=== PATIENT | female | born 1965 | race Caucasian/White ===

== ENCOUNTER 2022-12-30 08:16 | Outpatient (AMB) | payer OTHER, SELFPAY ==
--- NOTE | 2022-12-30 08:38 | MHC.OFFVIS ---
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 referral from . Morning News Producer Required: No Allergies No Known Allergies Allergy (Verified 12/30/22 08:47) Medication List - Last Reconciled 12/30/22 by BRIONNA Fagan fremanezumab-vfrm (Ajovy) mg subcut sumatriptan succinate 0 mg PO HPI HPI Comments History of Present Illness Details Right-handed 57-yr-old female presents for new pt evaluation of headache disorder, specifically migraine w/o aura for transfer of care from Dr Clark who recently retired. Pt reports she had very frequent and severe migraines, however has been doing much better on her current regimen. Headache questionnaire: Age/time of onset? teenage yrs Preceding causes? none Headache characteristics? bifrontal throbbing pain Pain intensity? Severe Prodrome symptoms? None Aura? None Associated symptoms? Photophobia, phonophobia, allodynia, nausea, neck pain, Focal weakness, Parethesias, Autonomic s/s? None Postdrome? none Triggers? dehydration- at times Positional, valsalva, exertional, sexual activity triggers? none Menstrual triggers? no hx Time of day? often wakes up with the headache Duration? 4 days Frequency? On Ajovy- less than 1 migraine attack < 1 month. In the month, 1 mild-mod migraine day. Prior to Ajovy- had every other day headache/migraine. How does headache impact your life? Cannot work or do her usual activities. 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 Has had normal brain MRI and CTs in the past. Has routine eye exams. Current acute medication use/interventions: Sumatriptan 100mg- may repeat dose- does cause some nausea (offset by eating 6-7 crackers). Previous acute medication use: None Current preventative medication use: Ajovy 225mg sc q month. Previous preventative medication use: Botox- which helped but not fully. Botox with Ajovy was more helpful. Amitriptyline- ineffective. Topiramate- caused severe paresthesias. Propranolol- ineffective. Aimovig- caused severe constipation. Non-pharmacological interventions: Rest in dark, ice packs. Other history of headache disorder? None History of musculoskeletal disorders or injury? None History of concussion/head injury? None History of mood disorder? None History of sleep disorder? Sleep difficulties. Unsure if she snores. Denies bruxism. History of respiratory disease? None History of CV disease? None History of coagulopathy? None History of endocrine or metabolic disease? None History of seizure? None Family planning? n/a Family history of migraine or other headache disorder? grandmother, mother, her son PFSH Surgical History (Updated 12/30/22 @ 08:48 by Nury Gaspar CMA) H/O: hysterectomy Family History (Updated 12/30/22 @ 08:48 by Nury Gaspar CMA) Father Prostate cancer Son JDMS (juvenile dermatomyositis) Social History (Updated 12/30/22 @ 08:49 by Nury Gaspar CMA) Alcohol intake: current Alcohol intake frequency: a few times a month Patient Tobacco Use Status: Never used Tobacco Review of Systems Const Details: See scanned ROS form Physical Exam Vital Signs: Last Vital Signs Pulse 68 12/30/22 08:39 BP 104/86 12/30/22 08:39 Pulse Ox 95 12/30/22 08:39 Oxygen Delivery Method Room Air 12/30/22 08:39 BMI result Body Mass Index 26.1 Const Orientation/consciousness: patient oriented x3 HEENT Other: No palpable scalp tenderness. Head: Yes normocephalic Resp Effort & Inspection: normal respiratory effort and able to speak in complete sentences Neuro General: patient oriented x3 Cranial nerves: Yes CN's II-XII intact bilaterally Cognition (Neuro): normal cognition Gait exam (Neuro): Normal gait present Motor exam (neuro): 5/5 motor strength present throughout Deep tendon reflexes (DTR's): Right triceps reflex intensity grade: 2+, Left triceps reflex intensity grade: 2+, Rt Biceps (C5, C6): 2+, Left biceps reflex intensity grade: 2+, Right brachioradialis reflex intensity grade: 2+, Left brachioradialis reflex intensity grade: 2+, Right patellar reflex intensity grade: 2+ and Left patellar reflex intensity grade: 2+ Coordination: [id number]-[id number] test normal, tandem gait normal and Romberg test negative Pupils: Normal pupillary reactivity/response: bilateral Psych Appearance: grossly normal Mental Status: mental status grossly normal Speech and movement: Normal speech and movement present Affect: normal affect Attitude: cooperative Thought process: Normal thought process present Assessment & Plan Assessment & Plan (1) Migraine without aura: Code(s): G43.009 - Migraine without aura, not intractable, without status migrainosus Plan For overall migraine w/o aura/headache management: Discussed importance of good self-care, including but not limited to maintaining a healthy diet, adequate fluid intake, adequate sleep, and engaging in regular physical activity. For headache triggers: Track headaches, especially after any treatment regimen changes. [employer] is one of many headache tracking apps. For acute migraine w/o aura/headache treatment: Discussed importance of taking acute medications at the first sign of headache, however stressed importance of avoiding acute medication overuse (especially with combined headache medications). Continue Sumatriptan 100mg tab, 100mg at onset of headache, may repeat in 2 hours. Max of 2 tabs (200mg) per 24 hours. May adjunct with OTC Tylenol 650mg q 4 hours, Ibuprofen 600mg q 6 hours, or Naproxen 440mg q 12 hrs prn. Future considerations: Sumatriptan injectable. Previous acute migraine medication trials: None Acute migraine medication contraindications: None at this time For migraine w/o aura/headache prevention medication: Continue Ajovy 225mg sc q month Previous migraine prevention medication trials: Botox- which helped but not fully. Botox with Ajovy was more helpful. Amitriptyline- ineffective. Topiramate- caused severe paresthesias. Propranolol- ineffective. Aimovig- caused severe constipation. Migraine prevention medication contraindications: None at this time Information also given on non-pharmacological interventions, such as Cefaly or Nerivio neuromodulation devices. Pt to follow-up in 4-6 months or sooner prn. Medications: New sumatriptan succinate (0.5 - 1 x 100 mg) 50 - 100 mg orally at onset of headache, may repeat in 2 hrs PRN; max 2 tabs per day or 4 tabs/week (may take with Ibuprofen) 30 days 12 tabs 6RF migraine headache fremanezumab-vfrm (Ajovy) 225 mg (1.5 mL) subcut ONCE 30 days 1.5 mL 11RF Coding Level of Care Code New Pt Level 4 (36649) Diagnoses Migraine without aura G43.009
[2022-12-30 08:39] VITALS: BP 104/86; PULSE 68; O2SAT 95; BMI 26.1
== END 2022-12-30 10:00 | disposition home or self-care (01) ==
PROVIDERS: PCP Internal Medicine; Visit Provider Nurse Practitioner Family
DX: G43.009 Migraine without aura, not intractable, without status migrainosus (principal)
CPT/HCPCS: 99204

== ENCOUNTER → 2022-12-30 08:16 | Outpatient (BNVA) | payer OTHER, SELFPAY | PROVIDERS: PCP Internal Medicine; Visit Provider Nurse Practitioner Family ==

== ENCOUNTER 2023-06-02 08:28 | Outpatient (AMB) | payer OTHER, SELFPAY ==
--- NOTE | 2023-06-02 08:44 | MHC.OFFVIS ---
Intake Vital Signs 06/02/23 08:45 Height 5 ft 7 in Weight 180 lb BMI 28.2 BP 110/74 Blood Pressure Location Rt brachial Position Sitting Pulse 74 Pulse Source Pulse Oximeter Pulse Oximetry (%) 98 Oxygen Delivery Method Room Air Intake Visit Reasons: 5 mnts f/u for Migraines-LVM Intake Note: Patient presents for 5 month follow up migraines Carly been getting them a little more but not like before Allergies No Known Allergies Allergy (Verified 06/02/23 08:48) Medication List - Last Reconciled 06/02/23 by BRIONNA Fagan fremanezumab-vfrm (Ajovy) 225 mg (1.5 mL) subcut ONCE 30 days sumatriptan succinate 0 mg PO sumatriptan succinate 50 - 100 mg orally at onset of headache, may repeat in 2 hrs PRN; max 2 tabs per day or 4 tabs/week (may take with Ibuprofen) 30 days HPI HPI Comments History of Present Illness Details 57-yr-old female presents for f/u visit. Pt endorses the following interval medical history changes: Right foot neuroma removal. She would like to discuss resuming Botox if possible. She has had an increase in migraine attacks which are more severe, despite being complaint w/ Ajovy. She is using Sumatriptan, which helps, but runs out before refill is due. Baseline migraine w/o aura characteristics: Severe bifrontal throbbing pain a/w Photophobia, phonophobia, allodynia, nausea, neck pain. Current number of typical migraine days per month: 12 migraine headache days Average painfulness of these migraines: mod-severe Current number of non-migraine headache days per month: 2 days of week (8 days per month) Average painfulness of these headaches: low grade Total headache days- 20 headache days per month, 12 off which meet migraine criteria- pt still has chronic migraine phenotype. Current number of days of acute medication use per month: > 12 days per month Previous number of migraine days per month prior to starting current preventive tx: Prior to Ajovy- had every other day severe headache/migraine. MIDAS (Migraine Disability Assessment): 1. On how many days in the last 3 months did you miss work or school because of your headaches? 5-6 2. How many days in the last 3 months was your productivity at work or school reduced by half or more because of your headaches? (Do not include days you counted in question 1 where you missed work or school.)? 10-15 3. On how many days in the last 3 months did you not do household work (such as housework, home repairs and maintenance, shopping, caring for children and relatives) because of your headaches? 5-6 4. How many days in the last 3 months was your productivity in household work reduced by half of more because of your headaches? (Do not include days you counted in question 3 where you did not do household work.)? 10-15 5. On how many days in the last 3 months did you miss family, social or leisure activities because of your headaches? > 30 Total (Questions 1-5): (MIDAS Grade Definition, MIDAS Score: I Little or No Disability: 0-5, II Mild Disability: 6-10, III Moderate Disability: 11-20, IV Severe Disability: 21+) PFSH Surgical History H/O: hysterectomy Family History Father Prostate cancer Son JDMS (juvenile dermatomyositis) Social History Alcohol intake: current Alcohol intake frequency: a few times a month Patient Tobacco Use Status: Never used Tobacco Physical Exam Vital Signs: Last Vital Signs Pulse 74 06/02/23 08:45 BP 110/74 06/02/23 08:45 Pulse Ox 98 06/02/23 08:45 Oxygen Delivery Method Room Air 06/02/23 08:45 BMI result Body Mass Index 28.2 Const General: cooperative and no acute distress Orientation/consciousness: patient oriented x3 Resp Effort & Inspection: normal respiratory effort and able to speak in complete sentences Neuro General: patient oriented x3 Cranial nerves: Yes CN's II-XII intact bilaterally Cognition (Neuro): normal cognition Psych Appearance: grossly normal Mental Status: mental status grossly normal Speech and movement: Normal speech and movement present Affect: normal affect Attitude: cooperative Assessment & Plan Assessment & Plan (1) Chronic migraine without aura: Code(s): G43.709 - Chronic migraine without aura, not intractable, without status migrainosus (2) Constipation: Code(s): K59.00 - Constipation, unspecified Plan For overall migraine w/o aura/headache management: Continue to optimize good self-care, including but not limited to maintaining a healthy diet, adequate fluid intake, adequate sleep, and engaging in regular physical activity. Track headaches, especially after any treatment regimen changes. [employer] is one of many headache tracking apps. For acute migraine w/o aura/headache treatment: Continue Sumatriptan 100mg tab, 100mg at onset of headache, may repeat in 2 hours. Max of 2 tabs (200mg) per 24 hours. May adjunct with OTC Tylenol 650mg q 4 hours, Ibuprofen 600mg q 6 hours, or Naproxen 440mg q 12 hrs prn. Future considerations: Sumatriptan injectable. Previous acute migraine medication trials: None Acute migraine medication contraindications: None at this time For migraine w/o aura/headache prevention medication: Resume Botox, as pt has had partial but not full benefit from Ajovy in hopes that using Ajovy with Botox will provide more meaningful reduction in severity and frequency of her chronic migraine burden. 155 unit units IM q 12 months per PREEMPT protocol- note in the past pt did have some neck weakness after Botox tx. Continue Ajovy 225mg sc q month Trial Nerivio- 45 neuromodulation stimulation qod for prevention and qd prn. Nerivio info shared w/ pt. Previous migraine prevention medication trials: Botox- which helped but not fully. Botox with Ajovy was more helpful. Amitriptyline- ineffective. Topiramate- caused severe paresthesias. Propranolol- ineffective. Aimovig- caused severe constipation. Migraine prevention medication contraindications: Aimovig d/t caused severe constipation. Qulipta- would need to use caution d/t risk for constipation s/e. Pt to follow-up in 4-6 months or sooner prn. Medications: New onabotulinumtoxinA (Botox) inject 155 units IM across forehead, scalp, and neck 200 units IM ONCE 12 weeks 1 ea 3RF M84.714 - Chronic migraine without aura, not intractable, without status migrainosus Refilled sumatriptan succinate (0.5 - 1 x 100 mg) 50 - 100 mg orally at onset of headache, may repeat in 2 hrs PRN; max 2 tabs per day or 4 tabs/week (may take with Ibuprofen) 30 days 12 tabs 6RF migraine headache Coding Level of Care Code Est Pt Level 4 (48926) Diagnoses Chronic migraine without aura G43.709 Constipation K59.00
[2023-06-02 08:45] VITALS: BP 110/74; PULSE 74; O2SAT 98; BMI 28.2
== END 2023-06-02 09:40 | disposition home or self-care (01) ==
PROVIDERS: PCP Internal Medicine; Visit Provider Nurse Practitioner Family
DX: G43.709 Chronic migraine without aura, not intractable, without status migrainosus (principal); K59.00 Constipation, unspecified
CPT/HCPCS: 99214

== ENCOUNTER → 2023-06-02 08:28 | Outpatient (BNVA) | payer OTHER, SELFPAY | PROVIDERS: PCP Internal Medicine; Visit Provider Nurse Practitioner Family ==

== ENCOUNTER 2023-10-27 12:46 | Outpatient (AMB) | payer OTHER, SELFPAY ==
--- NOTE | 2023-10-27 12:53 | A.OFFVIS_ITS ---
Vital Signs 10/27/23 12:54 Respiration 16 Pulse 74 Pulse Source Pulse Oximeter Pulse Oximetry (%) 98 Oxygen Delivery Method Room Air Intake Visit Reasons: Botox - LVM w/add Intake Note: Pt presents to the office for Botox injections. Supervisor Remelt Required: No Allergies No Known Allergies Allergy (Verified 10/27/23 12:54) Medication List - Last Reconciled 10/27/23 by Kamilla Hopper MD fremanezumab-vfrm (Ajovy) 225 mg (1.5 mL) subcut ONCE 30 days onabotulinumtoxinA (Botox) 200 units IM ONCE 12 weeks sumatriptan succinate 50 - 100 mg orally at onset of headache, may repeat in 2 hrs PRN; max 2 tabs per day or 4 tabs/week (may take with Ibuprofen) 30 days HPI Comments Details: ? 57y/o female comes for treatment of migraines with botox. ??? Most frequent reported adverse reactions following injection of botox for chronic migraine include neck pain (9%), headache(5%), eyelid ptosis(4%), migraine(4%), muscular weakness(4%), musculuskeletal stiffness(4%), bronchitis(3%), injection site pain (3%), musculoskeletal pain(3%), myalgia(3%), facial paresis(2%), HTN(2%) and muscle spasms(2%) were discussed in detail. ??? Botulinum toxin typeA 200units Lot no [id number] expiration October 2025 was diluted with 4 cc of normal saline . ??? Muscles injected- ??? Frontalis 4 sites ??? Procerus 1 site ??? Cmm Programmer- 2 sites ??? Temporalis- 8 sites ??? Occipitalis- 6 sites ??? Cervical paraspinals- 4 sites ??? Trapezius- 6 sites- 10 units each ??? 5 units each in 31 site ??? Total use- 185units ??? Discarded-15units PFSH Surgical History H/O: hysterectomy Family History Father Prostate cancer Son JDMS (juvenile dermatomyositis) Social History Alcohol intake: current Alcohol intake frequency: a few times a month Patient Tobacco Use Status: Never used Tobacco Physical Exam Vital Signs: Last Vital Signs Pulse 74 10/27/23 12:54 Resp 16 10/27/23 12:54 Pulse Ox 98 10/27/23 12:54 Oxygen Delivery Method Room Air 10/27/23 12:54 Const General: cooperative and no acute distress Orientation/consciousness: patient oriented x3 Resp Effort & Inspection: normal respiratory effort and able to speak in complete sentences Neuro General: patient oriented x3 Cranial nerves: Yes CN's II-XII intact bilaterally Cognition (Neuro): normal cognition Psych Appearance: grossly normal Mental Status: mental status grossly normal Speech and movement: Normal speech and movement present Affect: normal affect Attitude: cooperative Office Procedures Botulinum toxin Injection 08069 - Migraine Procedure code (CPT) selection complete Office Meds onabotulinumtoxinA 200 unit solution for injection Performing Provider: Kamilla Hopper MD Performing Location: [facility] [place] [facility] Administered by: Kamilla Hopper MD on 10/27/23 13:36 Dose Route Admin Location Dispensed Lot Number Expiration Date [facility] Sales Secretary 185 unit subcut 200 units [id number] 10/21/25 2885-0280-19 ALLERGAN/BOTOX Comments: see HPI Assessment & Plan Assessment & Plan (1) Chronic migraine without aura: Code(s): G43.709 - Chronic migraine without aura, not intractable, without status migrainosus Category: Medical Plan Patient tolerated the procedure well She will call with any side effects Orders: Orders AMB Botulinum toxin Injection - Patient Supplied Today G43.709 - Chronic migraine without aura, not intractable, without status migrainosus Medications: New onabotulinumtoxinA 200 units subcut ONCE 1 ea 0RF migraine G43.709 - Chronic migraine without aura, not intractable, without status migrainosus Coding Level of Care Code Est Pt Level 1 (71364) Diagnoses Chronic migraine without aura G43.709 CPT Codes Botox Injection - Botox 3: 89954 - Migraine ([id number])
[2023-10-27 12:54] VITALS: PULSE 74; RESP 16; O2SAT 98
== END 2023-10-27 13:33 | disposition home or self-care (01) ==
PROVIDERS: PCP Internal Medicine; Visit Provider Psychiatry & Neurology Neurology
DX: G43.709 Chronic migraine without aura, not intractable, without status migrainosus (principal)
CPT/HCPCS: 64615

== ENCOUNTER → 2023-10-27 12:46 | Outpatient (BNVA) | payer OTHER, SELFPAY | PROVIDERS: PCP Internal Medicine; Visit Provider Psychiatry & Neurology Neurology | DX: G43.709 Chronic migraine without aura, not intractable, without status migrainosus (principal) | CPT/HCPCS: 64615; 99211; J0585 ==

== ENCOUNTER 2024-03-13 07:56 | Outpatient (AMB) | payer OTHER, SELFPAY ==
[2024-03-13 08:02] VITALS: BP 112/76
--- NOTE | 2024-03-13 08:02 | A.OFFVIS_ITS ---
Vital Signs 03/13/24 08:02 Height 5 ft 7 in BP 112/76 Blood Pressure Location Rt brachial Position Sitting Intake Visit Reasons: Botox Intake Note: Patient presents for botox injection Allergies No Known Allergies Allergy (Verified 03/13/24 08:05) Medication List - Last Reconciled 03/13/24 by Kamilla Hopper MD fremanezumab-vfrm (Ajovy) 225 mg (1.5 mL) subcut ONCE 30 days onabotulinumtoxinA (Botox) 200 units IM ONCE 12 weeks sumatriptan succinate 50 - 100 mg orally at onset of headache, may repeat in 2 hrs PRN; max 2 tabs per day or 4 tabs/week (may take with Ibuprofen) 30 days HPI Comments Details: ? 58y/o female comes for treatment of migraines with botox. Patient has decreased intensity and frequency of migraines with ajovy and botox. when she was just on ajovy the frequency decreased but her breakthrough migraines lasted 4-5 days and intensity was 10/10 and she was unable to work. ??? Most frequent reported adverse reactions following injection of botox for chronic migraine include neck pain (9%), headache(5%), eyelid ptosis(4%), migraine(4%), muscular weakness(4%), musculuskeletal stiffness(4%), bronchitis(3%), injection site pain (3%), musculoskeletal pain(3%), myalgia(3%), facial paresis(2%), HTN(2%) and muscle spasms(2%) were discussed in detail. ??? Botulinum toxin typeA 200units Lot no [id number] expiration Jun 2025 was diluted with 4 cc of normal saline . ??? Muscles injected- ??? Frontalis 4 sites ??? Procerus 1 site ??? Otr [employer] Truck Driver- 2 sites ??? Temporalis- 8 sites ??? Occipitalis- 6 sites ??? Cervical paraspinals- 4 sites ??? Trapezius- 6 sites- 10 units each ??? 5 units each in 31 site ??? Total use- 185units ??? Discarded-15units PFSH Surgical History H/O: hysterectomy Family History Father Prostate cancer Son JDMS (juvenile dermatomyositis) Social History Alcohol intake: current Alcohol intake frequency: a few times a month Patient Tobacco Use Status: Never used Tobacco Physical Exam Vital Signs: Last Vital Signs BP 112/76 03/13/24 08:02 Const General: cooperative and no acute distress Orientation/consciousness: patient oriented x3 Resp Effort & Inspection: normal respiratory effort and able to speak in complete sentences Neuro General: patient oriented x3 Cranial nerves: Yes CN's II-XII intact bilaterally Cognition (Neuro): normal cognition Psych Appearance: grossly normal Mental Status: mental status grossly normal Speech and movement: Normal speech and movement present Affect: normal affect Attitude: cooperative Office Procedures Botulinum toxin Injection 39436 - Migraine Procedure code (CPT) selection complete Office Meds onabotulinumtoxinA 200 unit solution for injection Performing Provider: Kamilla Hopper MD Performing Location: [facility] [place] [facility] Administered by: Kamilla Hopper MD on 03/13/24 08:43 Dose Route Admin Location Dispensed Lot Number Expiration Date [facility] Ceramic Chemist 185 unit subcut 200 units [id number] 06/23/26 4711-4473-38 ALLERGAN/BOTOX Comments: see HPI Assessment & Plan Assessment & Plan (1) Chronic migraine without aura: Code(s): G43.709 - Chronic migraine without aura, not intractable, without status migrainosus Category: Medical Qualifiers: Status migrainosus presence: without status migrainosus Intractability: intractable Qualified Code(s): G43.719 - Chronic migraine without aura, intractable, without status migrainosus Plan Patient tolerated the procedure well She will call with any side effects Orders: Orders AMB Botulinum toxin Injection - Patient Supplied Today G43.719 - Chronic migraine without aura, intractable, without status migrainosus Medications: New onabotulinumtoxinA 200 units subcut ONCE 1 ea 0RF migraine G43.719 - Chronic migraine without aura, intractable, without status migrainosus Coding Level of Care Code Est Pt Level 1 (97731) Diagnoses Intractable chronic migraine without aura and without status migrainosus G43.719 Status migrainosus presence: without status migrainosus Intractability: intractable CPT Codes Botox Injection - Botox 3: 56387 - Migraine ([id number])
== END 2024-03-13 08:37 | disposition home or self-care (01) ==
PROVIDERS: PCP Internal Medicine; Visit Provider Psychiatry & Neurology Neurology
DX: G43.719 Chronic migraine without aura, intractable, without status migrainosus (principal)
CPT/HCPCS: 64615

== ENCOUNTER → 2024-03-13 07:56 | Outpatient (BNVA) | payer OTHER, SELFPAY | PROVIDERS: PCP Internal Medicine; Visit Provider Psychiatry & Neurology Neurology | DX: G43.719 Chronic migraine without aura, intractable, without status migrainosus (principal) | CPT/HCPCS: 64615; 99211; J0585 ==

== ENCOUNTER 2024-07-31 08:24 | Outpatient (AMB) | payer OTHER, SELFPAY ==
[2024-07-31 08:29] VITALS: BP 118/80; PULSE 84; O2SAT 97; BMI 23.5
--- NOTE | 2024-07-31 08:29 | MHC.OFFVIS ---
Vital Signs 07/31/24 08:29 Height 5 ft 7 in Weight 150 lb BMI 23.5 BP 118/80 Blood Pressure Location Lt brachial Position Sitting Pulse 84 Pulse Source Pulse Oximeter Pulse Oximetry (%) 97 Oxygen Delivery Method Room Air Intake Visit Reasons: 6 mnts f/u for Migraines Intake Note: Patient presents follow up Migraine. Electronics Installer Required: No Accompanied by: Self / Same As Patient Allergies No Known Allergies Allergy (Verified 07/31/24 08:29) Medication List - Last Reconciled 07/31/24 by BRIONNA Fagan fremanezumab-vfrm (Ajovy) 225 mg (1.5 mL) subcut ONCE 30 days onabotulinumtoxinA (Botox) 200 units IM ONCE 12 weeks rosuvastatin 5 mg PO DAILY sumatriptan succinate 50 - 100 mg orally at onset of headache, may repeat in 2 hrs PRN; max 2 tabs per day or 4 tabs/week (may take with Ibuprofen) 30 days HPI Comments Details: 58-yr-old female presents for f/u visit for migraine. Pt reports she was recently strated on low dose rosuvastatin for tx of familial HLD- so far toelrtaing it well. Pt reports she received 2 courses of Botox, however canceled her last Botox appointment. She did not tolerate the procedure well, Botox injections caused bruising. Since stopping the Botox she has had approximately 1 migraine day per month, which responds to sumatriptan. However the sumatriptan causes nausea, and so she is curious about trying Ubrelvy. She thinks she has tried alternative triptans in the past, however we do not have specific documentation of which. Overall, she is happy with her current Ajovy therapy, which she is tolerating well. Baseline migraine w/o aura characteristics: Severe bifrontal throbbing pain a/w Photophobia, phonophobia, allodynia, nausea, neck pain. PFSH Surgical History H/O: hysterectomy Family History Father Prostate cancer Son JDMS (juvenile dermatomyositis) Social History Alcohol intake: current Alcohol intake frequency: a few times a month Patient Tobacco Use Status: Never used Tobacco Physical Exam Vital Signs: Last Vital Signs Pulse 84 07/31/24 08:29 BP 118/80 07/31/24 08:29 Pulse Ox 97 07/31/24 08:29 Oxygen Delivery Method Room Air 07/31/24 08:29 BMI result Body Mass Index 23.5 Const General: cooperative and no acute distress Orientation/consciousness: patient oriented x3 Resp Effort & Inspection: normal respiratory effort and able to speak in complete sentences Neuro General: patient oriented x3 Cranial nerves: Yes CN's II-XII intact bilaterally Cognition (Neuro): normal cognition Psych Appearance: grossly normal Mental Status: mental status grossly normal Speech and movement: Normal speech and movement present Affect: normal affect Attitude: cooperative Assessment & Plan Assessment & Plan (1) HLD (hyperlipidemia): Code(s): E78.5 - Hyperlipidemia, unspecified Category: Medical (2) Migraine without aura: Code(s): G43.009 - Migraine without aura, not intractable, without status migrainosus Category: Medical Plan For overall migraine w/o aura/headache management: Continue to optimize good self-care, including but not limited to maintaining a healthy diet, adequate fluid intake, adequate sleep, and engaging in regular physical activity. Concur with starting low-dose rosuvastatin to manage hyperlipidemia. Track headaches, especially after any treatment regimen changes. Migraine [employer] is one of many headache tracking apps. For acute migraine w/o aura/headache treatment: Hold Sumatriptan 100mg tab- as it is effective but causes nausea. Trial Rizatriptan 10mg tab, 1/2 - 1 tab (5-10mg) at onset of headache, may repeat in 2 hours. Max of 2 tabs (200mg) per 24 hours. May adjunct with OTC Tylenol 650mg every 4 hours, Ibuprofen (liquigel) 600mg every 6 hours, or Naproxen (liquigel) 440mg every 12 hrs as needed. Potential adverse effects of triptans, include but are not limited to nausea, fatigue, chest tightness/tingling (usually passes within a few minutes), medication overuse headaches. We will also provide patient with sample of Ubrelvy trial, as this likely will be effective as she has positive effect from Ajovy. Future considerations: Sumatriptan injectable. Previous acute migraine medication trials: Sumatriptan effective but causes nausea. Acute migraine medication contraindications: None at this time For migraine w/o aura/headache prevention medication: Concur with stopping Botox- not tolerating injections, and breakthrough migraine frequency has decreased significantly. 155 unit units IM q 12 months per PREEMPT protocol- note in the past pt did have some neck weakness after Botox tx. Continue Ajovy 225mg sc q month Previous migraine prevention medication trials: Botox- which helped but not fully. Botox with Ajovy was more helpful. Amitriptyline- ineffective. Topiramate- caused severe paresthesias. Propranolol- ineffective. Aimovig- caused severe constipation. Migraine prevention medication contraindications: Aimovig d/t caused severe constipation. Qulipta- would need to use caution d/t risk for constipation s/e. Sample given Ubrelvy 100mg tab- 1 tab per box Quantity given- 2 boxes (2 tabs) instructions- Trial Ubrogepant (Ubrelvy) 100mg tab, 1/2 - 1 tab (50-100mg) at onset of headache, may repeat in 2 hours. Max of 2 tabs (200mg) per 24 hours. May adjunct with OTC Tylenol 650mg q 4 hours, Ibuprofen 600mg q 6 hours, or Naproxen 440mg q 12 hrs prn. Do not take w/ Butalbital (Fioricet or Fiorinal). Potential adverse effects, include but are not limited to fatigue, nausea, dry mouth, constipation lot # [id number] Exp date 04/2025 Pt to follow-up in 6 months or sooner prn. Medications: New rizatriptan max 2 tabs per day or 4 tabs per week 5 - 10 mg (0.5 - 1 x 10 mg) PO Q2H 21 days PRN 12 tabs 3RF migraine headache Coding Level of Care Code Est Pt Level 4 (11581) Diagnoses HLD (hyperlipidemia) E78.5 Migraine without aura G43.009
--- OUTSIDE RECORDS SUMMARY | 2024-07-31 09:04 | XMS_ITS | Encounter Summary ---
Author Organization [facility] Address [address] [place] [address] Care Team Providers Care Meal Cooker Name Role Phone Vance Morales MD Primary Care Provider [phone] Reason for Referral * Imaging (Routine) - Closed Specialty Diagnoses / Procedures Referred By Carson thacker Referred To Contact Radiology Diagnoses Encounter for screening mammogram for malignant neoplasm of breast Procedures MG Mammo Digital Screening w Vance Campbell MD [address] [place] [address] Phone: tel: fax: [facility] [place] Referral ID Status Reason Start Date Expiration Date Visits Re quested Visits Authorized [id number] Closed 06/25/2024 06/25/2025 1 1 Reason for Visit * Imaging (Routine) - Closed Specialty Diagnoses / Procedures Referred By Carson thacker Referred To Contact Radiology Diagnoses Encounter for screening mammogram for malignant neoplasm of breast Procedures MG Mammo Digital Screening w Vance Campbell MD [address] [place] [address] Phone: tel: fax: [facility] [place] Referral ID Status Reason Start Date Expiration Date Visits Re quested Visits Authorized [id number] Closed 06/25/2024 06/25/2025 1 1 Encounter Details Date Type Department Care Team (Latest Contact Info) Description 07/04/2024 7:41 AM EST - 07/04/2024 11:59 PM EST Hospital [facility] [address] [address] Encounter for screening mammogram for malignant neoplasm of breast Discharge Disposition: Home or Self Care Social History Tobacco Use Types Packs/Day Years Used Date Smoking Tobacco: Never Assessed Comments No Sex and Gender Information Value Date Recorded Sex Assigned at Not on file Legal Sex Female 12:23 PM EST Gender Identity Not on file Sexual Orientation Not on file documented as of this encounter Last Filed Vital Signs Vital Sign Reading Time Taken Comments Blood Pressure - - Pulse - - Temperature - - Respiratory Rate - - Oxygen Saturation - - Inhaled Oxygen Concentration - - Weight 72.6 kg (160 lb) 07/04/2024 7:47 AM EST Height 170.2 cm (5' 7 ) 07/04/2024 7:47 AM EST Body Mass Index 25.06 07/04/2024 7:47 AM EST documented in this encounter Discharge Disposition Disposition Code Departure Means Destination Home or Self Care documented in this encounter Plan of Treatment Not on file documented as of this encounter Procedures Procedure Name Priority Date/Time Associated Diagnosis Comments MG MAMMO DIGITAL SCREENING W ZAKI BILAT Routine 07/04/2024 7:55 AM EST Encounter for screening mammogram for malignant neoplasm of breast documented in this encounter Results * MG Mammo Digital Screening w Zaki bilat (07/04/2024 7:55 AM EST) Anatomical Region Laterality Modality Breast Bilateral Mammography 07/04/2024 12:5 7 PM EST Impressions 07/04/2024 1:01 PM EST No mammographic evidence of malignancy. BI-RADS: ??Category 2: Benign RECOMMENDATION(S): Routine screening mammogram BILATERAL in 1 year. -------- FINAL REPORT -------- Dictated By: DESHAWN LINCOLN Dictated Date: 07/04/2024 12:57 ET Assigned Physician: DESHAWN LINCOLN Reviewed and Electronically Signed By: DESHAWN LINCOLN Signed Date: 07/04/2024 13:01 ET Workstation ID: [id number] Transcribed By: Self Edit Transcribed Date: 07/04/2024 12:57 ET Narrative 07/04/2024 1:01 PM EST EXAM: MG MAMMO DIGITAL SCREENING W ZAKI BILAT EXAM DATE AND TIME: 07/04/2024 7:46 AM HISTORY: SCREENING COMPARISON: 10/14/2022 through 08/06/2019 TECHNIQUE: Bilateral digital breast tomosynthesis was performed in the MLO projection. Computer aided detection with iCAD [employer] AI 3D 3.1 was employed. TISSUE DENSITY: b: There are scattered areas of fibroglandular density. FINDINGS: There is no evidence of suspicious mass, unusual calcifications, or architectural distortion. Scattered benign calcifications are seen bilaterally. Procedure Note Deshawn Lincoln MD - 07/04/2024 EXAM: MG MAMMO DIGITAL SCREENING W ZAKI BILAT EXAM DATE AND TIME: 07/04/2024 7:46 AM HISTORY: SCREENING COMPARISON: 10/14/2022 through 08/06/2019 TECHNIQUE: Bilateral digital breast tomosynthesis was performed in the MLOprojection. Computer aided detection with iCAD [employer] AI 3D 3.1 wasemployed. TISSUE DENSITY: b: There are scattered areas of fibroglandular density. FINDINGS: There is no evidence of suspicious mass, unusual calcifications, orarchitectural distortion. Scattered benign calcifications are seen bilaterally. IMPRESSION: No mammographic evidence of malignancy. BI-RADS: Category 2: Benign RECOMMENDATION(S): Routine screening mammogram BILATERAL in 1 year. -------- FINAL REPORT -------- Dictated By: DESHAWN LINCOLN Dictated Date: 07/04/2024 12:57 ET Assigned Physician: DESHAWN LINCOLN Reviewed and Electronically Signed By: DESHAWN LINCOLN Signed Date: 07/04/2024 13:01 ET Workstation ID: [id number] Transcribed By: Self Edit Transcribed Date: 07/04/2024 12:57 ET Vance Morales MD IMG BI PROCEDURES Final Resu lt documented in this encounter Visit Diagnoses Diagnosis Encounter for screening mammogram for malignant neoplasm of breast documented in this encounter Care Teams Meal Cooker Relationship Specialty Start Date End Date Vance Morales MD [address] [place] [id number] PCP - General Internal Medicine 06/29/24 documented as of this encounter
--- OUTSIDE RECORDS SUMMARY | 2024-07-31 09:04 | XMS_ITS | Clinical Summary ---
Author Organization [facility] Address [address] [place] [address] Phone Care Team Providers Care Pathology Secretary Name Role Phone Vance Morales MD Primary Care Provider Encounters Date Type Department Care Team Description 07/04/2024 7:41 AM EST - 07/04/2024 11:59 PM EST [facility] at [address] [address] Encounter for screening mammogram for malignant neoplasm of breast Discharge Disposition: Home or Self Care from Last 3 Months Surgical History Surgery Date Site/Laterality Comments HYSTERECTOMY Social History Tobacco Use Types Packs/Day Years Used Date Smoking Tobacco: Never Assessed Comments No Sex and Gender Information Value Date Recorded Sex Assigned at Not on file Legal Sex Female 12:23 PM EST Gender Identity Not on file Sexual Orientation Not on file Obstetrics History Para Term AB IAB SAB Ectopic Multiple Livin g Live Births 2 Last Filed Vital Signs Vital Sign Reading Time Taken Comments Blood Pressure - - Pulse - - Temperature - - Respiratory Rate - - Oxygen Saturation - - Inhaled Oxygen Concentration - - Weight 72.6 kg (160 lb) 07/04/2024 7:47 AM EST Height 170.2 cm (5' 7 ) 07/04/2024 7:47 AM EST Body Mass Index 25.06 07/04/2024 7:47 AM EST Plan of Treatment Health Maintenance Due Date Last Done Comments DTaP,Tdap,and Td Vaccines (1 - Tdap) 11/07/1982 Cervical Cancer Screening: Pap Smear 11/07/1984 Pneumococcal Vaccine: 50+ Years (1 of 1 - PCV) 11/07/2013 Colorectal Cancer Screening: Colonoscopy 04/20/2022 Depression Screening 04/20/2022 HIV Screening 04/20/2022 Hepatitis C Screening 04/20/2022 Social Influencers of Health Screening 04/20/2022 COVID-19 Vaccine ( season) 2024 02/09/2022, 04/06/2021, 07/04/2020, Additional history exists Influenza Vaccine (#1) 2024 3, 03/30/2022, 02/25/2021 Breast Cancer Screening 07/04/2026 07/04/19, 10/14/2022, 10/12/2021, Additional history exists RSV Immunization Patients 60+ Years Old (1 - 1-dose 75+ series) 11/07/2038 Zoster Vaccines Completed 06/11/2023, 02/28/2023 HIB Vaccines Aged Out No longer eligi ble based on patient's age to complete this topic HPV Vaccines Aged Out No longer eligi ble based on patient's age to complete this topic Hepatitis A Vaccines Aged Out No long er eligible based on patient's age to complete this topic Hepatitis B Vaccines Aged Out No long er eligible based on patient's age to complete this topic IPV Vaccines Aged Out No longer eligi ble based on patient's age to complete this topic MMR Vaccines Aged Out No longer eligi ble based on patient's age to complete this topic Meningococcal ACWY Vaccine Aged Out N o longer eligible based on patient's age to complete this topic Meningococcal B Vacine Aged Out No lo nger eligible based on patient's age to complete this topic Pneumococcal Vaccine: Pediatrics (0 to 5 Years) and At-Risk Patients (6 to 64 Years) Aged Out No longer eligible based on patient's age to complete this topic RSV Immunization Patients Under 20 months Aged Out No longer eligible based on patient's age to complete this topic Varicella Vaccines Aged Out No longer eligible based on patient's age to complete this topic Procedures Procedure Name Priority Date/Time Associated Diagnosis Comments MG MAMMO DIGITAL SCREENING W ZAKI BILAT Routine 07/04/2024 7:55 AM EST Encounter for screening mammogram for malignant neoplasm of breast from Last 3 Months Results * MG Mammo Digital Screening w [...] Signed Date: 07/04/2024 13:01 ET Workstation ID: [id number] Transcribed By: Self Edit Transcribed Date: 07/04/2024 12:57 ET Narrative 07/04/2024 1:01 PM EST EXAM: MG MAMMO DIGITAL SCREENING W ZAKI BILAT EXAM DATE AND TIME: 07/04/2024 7:46 AM HISTORY: SCREENING COMPARISON: 10/14/2022 through 08/06/2019 TECHNIQUE: Bilateral digital breast tomosynthesis was performed in the MLO projection. Computer aided detection with [employer] AI 3D 3.1 was employed. TISSUE DENSITY: [...] the MLOprojection. Computer aided detection with iCAD [employer] AI 3D 3.1 wasemployed. TISSUE DENSITY: b: [...] Signed Date: 07/04/2024 13:01 ET Workstation ID: [id number] Transcribed By: Self Edit Transcribed Date: 07/04/2024 12:57 ET Vance Morales MD IMG BI PROCEDURES Final Resu lt from Last 3 Months Insurance [facility] Care Teams Pathology Secretary Relationship Specialty Start Date End Date Vance Morales MD [address] [place] [address] PCP - General Internal Medicine 06/29/24
== END 2024-07-31 09:24 | disposition home or self-care (01) ==
LOC: HO.HSMS 08:24
PROVIDERS: PCP Internal Medicine; Visit Provider Nurse Practitioner Family
DX: E78.5 Hyperlipidemia, unspecified (principal); G43.009 Migraine without aura, not intractable, without status migrainosus
CPT/HCPCS: 99214

== ENCOUNTER → 2024-07-31 08:24 | Outpatient (BNVA) | payer OTHER, SELFPAY | PROVIDERS: PCP Internal Medicine; Visit Provider Nurse Practitioner Family | DX: G43.709 Chronic migraine without aura, not intractable, without status migrainosus (principal) ==

== ENCOUNTER 2025-01-31 09:15 | Outpatient (AMB) | payer OTHER, SELFPAY ==
--- NOTE | 2025-01-31 09:16 | A.OFFVIS_ITS ---
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 Refrigeration Required: No Accompanied by: Self / Same As Patient Allergies No Known Allergies Allergy (Verified 01/31/25 09:16) Medication List - Last Reconciled 01/31/25 by BRIONNA Fagan fremanezumab-vfrm (Ajovy) 225 mg (1.5 mL) subcut ONCE 30 days rizatriptan 5 - 10 mg (0.5 - 1 x 10 mg) PO Q2H PRN 21 days rosuvastatin 10 mg PO DAILY sumatriptan succinate 50 - 100 mg orally at onset of headache, may repeat in 2 hrs PRN; max 2 tabs per day or 4 tabs/week (may take with Ibuprofen) 30 days trazodone 25 - 50 mg (0.5 - 1 x 50 mg) PO BEDTIME PRN 30 days HPI Comments Details: 59-yr-old female presents for f/u visit for migraine. Patient denies any significant interval medical history changes. Pt reports she continues to be happy with her current Ajovy therapy, which she is tolerating well. She is rarely having a breakthrough migarine, and today states she prefers to continue with her prn sumatriptan. She is taking Z-quil every night to help her sleep. 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 She walks 12,000 steps a day and does weight training 4 times a week, and it manage her weight. She only takes coffee in the morning. She denies snoring, gasping arousals, apneas, or history of sleep apnea. She denies restless leg, nocturnal leg cramps. Baseline migraine w/o aura characteristics: Severe bifrontal throbbing pain a/w Photophobia, phonophobia, allodynia, nausea, neck pain. [facility] Surgical History H/O: hysterectomy Family History Father Prostate cancer Son JDMS (juvenile dermatomyositis) Social History Alcohol intake: current Alcohol intake frequency: a few times a month Patient Tobacco Use Status: Never used Tobacco Physical Exam Vital Signs: Last Vital Signs Pulse 76 01/31/25 09:17 BP 108/76 01/31/25 09:17 Pulse Ox 100 01/31/25 09:17 Oxygen Delivery Method Room Air 01/31/25 09:17 BMI result Body Mass Index 24.8 Const General: cooperative and no acute distress Orientation/consciousness: patient oriented x3 Resp Effort & Inspection: normal respiratory effort and able to speak in complete sentences Neuro General: patient oriented x3 Cranial nerves: Yes CN's II-XII intact bilaterally Cognition (Neuro): normal cognition Psych Appearance: grossly normal Mental Status: mental status grossly normal Speech and movement: Normal speech and movement present Affect: normal affect Attitude: cooperative Assessment & Plan Assessment & Plan (1) Migraine without aura: Code(s): G43.009 - Migraine without aura, not intractable, without status migrainosus Category: Medical Qualifiers: Status migrainosus presence: without status migrainosus Intractability: not intractable Qualified Code(s): G43.009 - Migraine without aura, not intractable, without status migrainosus (2) Insomnia: Code(s): G47.00 - Insomnia, unspecified Category: Medical Qualifiers: Insomnia type: psychophysiologic Qualified Code(s): F51.04 - Psychophysiologic insomnia Plan For overall migraine w/o aura/headache management: Continue to optimize good self-care, including but not limited to maintaining a healthy diet, adequate fluid intake, adequate sleep, and engaging in regular physical activity. Track headaches For insomnia: * Start trazodone 50 mg tab, half to 1 tab daily at bedtime. * Reviewed reasonable expectations and side effects of use * List of sleep education resources shared with patient, such as ?Say Jl to Insomnia? by Dr. Victor Hugo Gaston. For acute migraine w/o aura/headache treatment: * Continue Sumatriptan 100mg tab * Discontinue Rizatriptan 10mg tab-patient states sumatriptan is better tolerated Future considerations: Sumatriptan injectable. Previous acute migraine medication trials: Sumatriptan effective but causes nausea. Acute migraine medication contraindications: None at this time For migraine w/o aura/headache prevention medication: * Continue Ajovy 225mg sc q month Previous migraine prevention medication trials: Botox- which helped but not fully. Botox with Ajovy was more helpful. Amitriptyline- ineffective. Topiramate- caused severe paresthesias. Propranolol- ineffective. Aimovig- caused severe constipation. Migraine prevention medication contraindications: Aimovig d/t caused severe constipation. Qulipta- would need to use caution d/t risk for constipation s/e. Pt to follow-up in 12 months or sooner prn. Medications: New trazodone 25 - 50 mg (0.5 - 1 x 50 mg) PO BEDTIME PRN 30 tabs 3RF insomnia 30 days Discontinued rizatriptan max 2 tabs per day or 4 tabs per week Discontinued Reason: Doctor's Order 5 - 10 mg (0.5 - 1 x 10 mg) PO Q2H 21 days PRN 12 tabs 6RF migraine headache Coding Level of Care Code Est Pt Level 4 (17251) Diagnoses Migraine without aura and without status migrainosus, not intractable G43.009 Status migrainosus presence: without status migrainosus Intractability: not intractable Psychophysiological insomnia F51.04 Insomnia type: psychophysiologic
[2025-01-31 09:17] VITALS: BP 108/76; PULSE 76; O2SAT 100; BMI 24.8
--- OUTSIDE RECORDS SUMMARY | 2025-01-31 10:41 | XMS_ITS | Encounter Summary ---
Author Organization [employer] [facility] Address [address] [place] [address] Care Team Providers Care Retirement Assistant Name Role Phone Vance Morales MD Primary Care Provider [phone] Encounter Details Date Type Department Care Team (Late st Contact Info) Description 12/19/2024 Telephone Gastroenterology - [address] [place] [address] Cora Bob MD [address] [place] [address] Social History Tobacco Use Types Packs/Day Years Used Date Smoking Tobacco: Never Assessed Comments No Sex and Gender Information Value Date Recorded Sex Assigned at Not on file Legal Sex Female 12:23 PM EST Gender Identity Not on file Sexual Orientation Not on file documented as of this encounter Progress Notes * Mercde Leonard - 01/29/2025 11:36 AM EDT 2nd faxed req sent. * Merced Leonard - 12/19/2024 2:47 PM EDT Referral received from Dr Vance Morales's office for colon. Missing insurance referral--req faxed sent to pcp. H&P scanned in media. documented in this encounter Plan of Treatment Not on file documented as of this encounter Visit Diagnoses Not on filedocumented in this encounter Care Teams Retirement Assistant Relationship Specialty Start Date End Date Vance Morales MD [address] [place] [id number] PCP - General Internal Medicine 06/29/24 documented as of this encounter
--- OUTSIDE RECORDS SUMMARY | 2025-01-31 10:41 | XMS_ITS | Clinical Summary ---
Author Organization [facility] Address [address] [place] [address] Phone Care Team Providers Care Cart Driver Name Role Phone Vance oMrales MD Primary Care Provider Encounters Date Type Department Care Team Description 12/19/2024 Telephone Gastroenterology - [address] [facility] [address] [place] [address] Cora Bob MD from Last 3 Months Surgical History Surgery [...] PCV) 11/07/2013 Colorectal Cancer Screening: Colonoscopy 04/20/2022 HIV Screening 04/20/2022 Hepatitis C Screening 04/20/2022 Social Influencers of Health Screening 04/20/2022 Depression Screening 05/23/2024 COVID-19 Vaccine ( season) 2025 02/09/2022, 04/06/2021, 07/04/2020, Additional history exists Influenza Vaccine (#1) 2025 3, 03/30/2022, 02/25/2021 Breast Cancer Screening 07/04/2026 07/04/19, 10/14/2022, 10/12/2021, Additional history exists RSV Immunization Adult Patients (1 - 1-dose 75+ series) 11/07/2038 Zoster [...] age to complete this topic Meningococcal B Vaccine Aged Out No l onger eligible based on patient's age to complete [...] neoplasm of breast from Last 3 Months or Most Recently Relevant to Health Maintenance Results * MG Mammo Digital Screening w Zaki bilat (07/04/2024 7:55 AM EST) Anatomical Region Laterality Modality Breast Bilateral Mammography 07/04/2024 12:5 7 PM EST Impressions 07/04/2024 1:01 PM EST No mammographic evidence of malignancy. BI-RADS: Category 2: Benign RECOMMENDATION(S): Routine screening mammogram BILATERAL in 1 year. -------- FINAL REPORT -------- Dictated By: DESHAWN LINCOLN Dictated Date: 07/04/2024 12:57 ET Assigned Physician: DESHAWN LINCOLN Reviewed and Electronically Signed By: DESHAWN LINCOLN Signed Date: 07/04/2024 13:01 ET Workstation ID: [id number] Transcribed By: Self Edit Transcribed Date: 07/04/2024 12:57 ET Narrative 07/04/2024 1:01 PM EST EXAM: MG MAMMO DIGITAL SCREENING W ZAKI BILAT EXAM DATE AND TIME: 07/04/2024 7:46 AM HISTORY: SCREENING COMPARISON: 10/14/2022 through 08/06/2019 TECHNIQUE: Bilateral digital breast tomosynthesis was performed in the MLO projection. Computer aided detection with [employer] AI 3D 3.1 was employed. TISSUE DENSITY: [...] in the MLOprojection. Computer aided detection with [employer] AI 3D 3.1 wasemployed. TISSUE DENSITY: b: [...] Signed Date: 07/04/2024 13:01 ET Workstation ID: [id number] Transcribed By: Self Edit Transcribed Date: 07/04/2024 12:57 ET Vance Morales MD IMG BI PROCEDURES Final Resu lt from Last 3 Months or Most Recently Relevant to Health Maintenance Insurance [facility] [place] [id number] [facility] Care Teams Cart Driver Relationship Specialty Start Date End Date Vance Morales MD [address] [place] [id number] PCP - General Internal Medicine 06/29/24
== END 2025-01-31 10:15 | disposition home or self-care (01) ==
LOC: HO.HSMS 09:15
PROVIDERS: PCP Internal Medicine; Visit Provider Nurse Practitioner Family
DX: G43.009 Migraine without aura, not intractable, without status migrainosus (principal); F51.04 Psychophysiologic insomnia
CPT/HCPCS: 99214